=== PATIENT | female | born 1995 | race Caucasian/White ===

== ENCOUNTER 2020-12-29 23:58 | Inpatient (IN) ==
[2020-12-30] MEDS ORDERED: BUTORPHANOL 2 MG/ML VIAL IV PRN (01:04)
[2020-12-30] MEDS ORDERED: ONDANSETRON 4 MG/2 ML VIAL IV PRN ×2 (01:04→21:19)
[2020-12-30] MEDS ORDERED: LACTATED RINGERS 1,000 ML IV ONE (01:04)
[2020-12-30] MEDS ORDERED: AMPICILLIN INJ 2,000 MG in SODIUM CHLORIDE 0.9% 100 ML IV ONE (01:20)
[2020-12-30] MEDS ORDERED: OXYTOCIN/LR 20 UNIT/1,000 ML BAG IV SCH (01:30)
[2020-12-30] MEDS ORDERED: LACTATED RINGERS 1,000 ML IV SCH (01:30)
[2020-12-30 01:43] LABS: Basophils # 0.1 10*3/uL (0.0-0.2); Basophils % 0.5 % (0.0-0.8); Eosinophils # 0.2 10*3/uL (0.0-0.87); Eosinophils % 1.5 % (0.00-10.9); Hematocrit 39.4 VOL% (35.7-47.0); Hemoglobin 12.8 GM/DL (12.0-16.0); Immature Granulocytes % 0.3 %; Immature Granulocytes Absolute 0.03 #; Lymphocytes # 3.2 10*3/uL (1.4-4.0); Lymphocytes % 28.6 % (21.3-54.2); Mean Corpuscular HGB Conc 32.5 GM/DL (32-36); Mean Corpuscular Volume 86.8 FL (87-102); Mean Platelet Volume 12.2 FL (9.6-12.0); Monocytes % 9.3 % (1.7-12.7); Neutrophils % 59.8 % (38.7-73.9); Platelet Count 236 T/CUMM (130-400); Red Blood Count 4.54 MC/CUMM (3.8-5.5); Red Cell Distribution Width 13.8 % (9.3-17.3); White Blood Count 11.1 T/CUMM (4-12)
[2020-12-30 02:02] LABS: Alanine Aminotransferase 13 U/L (13-56); Albumin 2.7 G/DL (3.4-5.0); Alkaline Phosphatase 316 U/L (45-117); Aspartate Amino Transferase 19 U/L (0-37); Bilirubin,Total < 0.39 MG/DL (0.20-1.00); Blood Urea Nitrogen 9 MG/DL (7-18); Calcium 9.7 MG/DL (8.5-10.1); Carbon Dioxide 21 MMOL/L (21-32); Estimated Glom Filtration Rate 167 ML/MIN; Glucose 87 MG/DL (74-106); Osmolality,Calculated 267.1 MOS/KG (273-304); Potassium 3.9 MMOL/L (3.5-5.1); Sodium 135 MMOL/L (136-145); Total Protein 6.9 G/DL (6.4-8.2)
[2020-12-30 03:02] LABS: Hypochromasia 1+; Platelet Estimate Normal
[2020-12-30] MEDS ORDERED: SODIUM CHLORIDE 0.9% 100 ML IV ONE (05:43)
[2020-12-30] MEDS: AMPICILLIN INJ 1,000 MG in SODIUM CHLORIDE 0.9% 100 ML IV SCH ×2 (05:46→10:26)
[2020-12-30] MEDS ORDERED: AMPICILLIN INJ 1,000 MG in SODIUM CHLORIDE 0.9% 100 ML IV ONE (08:30)
[2020-12-30] MEDS ORDERED: CITRIC ACID/SODIUM CITRATE 30 ML UDCUP PO ONE (09:34)
[2020-12-30] MEDS ORDERED: NALOXONE 0.4 MG/ML VIAL IV PRN (09:34)
[2020-12-30] MEDS ORDERED: ePHEDrine 50 MG/ML VIAL IV PRN (09:34)
[2020-12-30] MEDS ORDERED: PROMETHAZINE 25 MG/1 ML VIAL IM PRN (09:34)
[2020-12-30] MEDS ORDERED: FAMOTIDINE 20 MG/2 ML VIAL IV ONE (09:34)
[2020-12-30] MEDS ORDERED: diphenhydrAMINE 50 MG/1 ML VIAL IV PRN (09:34)
[2020-12-30] MEDS ORDERED: fentaNYL 2 MCG/ROPIV 0.2% EPID 100 ML EPIDURAL SCH (10:00)
[2020-12-30 13:42] LABS: Bilirubin,Urine Negative (Negative); Blood, Urine Negative (Negative); Glucose,Urine (UA) Negative (Negative); Ketones,Urine 20 mg/dL (Negative); Mucus,Urine Many /LPF (Occasional); Nitrite,Urine Negative (Negative); Protein,Urine 30 MG/DL; Squamous Epithelial Cell,Urine Occasional /HPF (0-10); Urine Appearance CLEAR (Clear); Urine Color Yellow (Yellow); Urine Urobilinogen < 2.0 EU/DL (0.2-1.0)
[2020-12-30] MEDS ORDERED: miSOPROStoL 200 MCG TABLET ONE (19:09)
[2020-12-30] MEDS ORDERED: TRANEXAMIC ACID 1,000 MG/10 ML VIAL ONE (19:09)
[2020-12-30] MEDS ORDERED: CARBOPROST TROMETHAMINE 250 MCG/ML AMP IM ONE (19:10)
[2020-12-30] MEDS ORDERED: METHYLERGONOVINE 0.2 MG/1 ML AMP ONE (19:10)
[2020-12-30] MEDS ORDERED: OXYTOCIN/LR 20 UNIT/1,000 ML BAG IV ONE ×2 (19:10→21:19)
[2020-12-30] MEDS ORDERED: ceFAZolin 2,000 MG/50 ML DUPLEX IV ONE (19:25)
[2020-12-30] MEDS ORDERED: ceFAZolin 3,000 MG in SYRINGE 1 EACH IV ONE (19:40)
[2020-12-30] MEDS ORDERED: LIDOCAINE MPF 2% /EPI 20 ML VIAL ONE (19:50)
[2020-12-30] MEDS ORDERED: ONDANSETRON 4 MG/2 ML VIAL ONE (20:14)
[2020-12-30 20:56] LABS: Cord Venous Blood HCO3 22.3 MMOL/L; Cord Venous Blood PCO2 43.7 MMHG; Cord Venous Blood PO2 30.8
[2020-12-30] MEDS ORDERED: KETOROLAC 30 MG/1 ML VIAL ONE ×2 (21:18)
[2020-12-30] MEDS ORDERED: oxyCODONE/ACETAMINOPHEN 5-325 MG TABLET PO PRN ×2 (21:19)
[2020-12-30] MEDS ORDERED: MAGNESIUM HYDROXIDE SUSP 30 ML UDCUP PO PRN (21:19)
[2020-12-30] MEDS ORDERED: ACETAMINOPHEN 325 MG TABLET PO PRN (21:19)
[2020-12-30] MEDS ORDERED: RHO(D) IMMUNE GLOBULIN 300 MCG SYRINGE IM ONE (21:19)
[2020-12-30] MEDS ORDERED: SIMETHICONE CHEW 80 MG TABLET PO PRN (21:19)
[2020-12-30] MEDS ORDERED: hydrOXYzine HCL 25 MG/1 ML VIAL IM PRN (21:27)
[2020-12-30] MEDS ORDERED: HYDROmorphone 2 MG/1 ML VIAL IV PRN (21:27)
[2020-12-30] MEDS ORDERED: FUROSEMIDE 40 MG/4 ML VIAL ONE (21:27)
[2020-12-30] MEDS ORDERED: LACTATED RINGERS 500 ML IV ONE (21:33)
[2020-12-30] MEDS ORDERED: FUROSEMIDE 40 MG/4 ML VIAL IV ONE (22:00)
[2020-12-30] MEDS: ACETAMINOPHEN 500 MG TABLET PO SCH (23:38)
[2020-12-31] MEDS: ACETAMINOPHEN 500 MG TABLET PO SCH ×3 (04:48→17:30)
[2020-12-31 04:56] LABS: Basophils # 0.1 10*3/uL (0.0-0.2); Basophils % 0.6 % (0.0-0.8); Eosinophils % 0.1 % (0.00-10.9); Hematocrit 32.1 VOL% (35.7-47.0); Immature Granulocytes % 0.4 %; Immature Granulocytes Absolute 0.06 #; Lymphocytes # 2.4 10*3/uL (1.4-4.0); Lymphocytes % 16.4 % (21.3-54.2); Mean Corpuscular Volume 87.2 FL (87-102); Mean Platelet Volume 12.6 FL (9.6-12.0); Monocytes % 10.4 % (1.7-12.7); Neutrophils % 72.1 % (38.7-73.9); Red Blood Count 3.68 MC/CUMM (3.8-5.5); Red Cell Distribution Width 13.7 % (9.3-17.3); White Blood Count 14.4 T/CUMM (4-12)
[2020-12-31 04:57] LABS: Hemoglobin 10.6 GM/DL (12.0-16.0); Platelet Count 187 T/CUMM (130-400)
[2020-12-31] MEDS: LACTATED RINGERS 1,000 ML IV SCH ×2 (06:18→13:41)
[2020-12-31] MEDS: MULTIVITAMIN (PRENATAL) TABLET PO SCH (11:41)
[2020-12-31] MEDS: FERROUS SULFATE 325 MG TABLET PO SCH (11:41)
[2020-12-31] MEDS: DOCUSATE SODIUM 100 MG CAPSULE PO SCH (11:41)
[2020-12-31] MEDS: IBUPROFEN 800 MG TABLET PO PRN (21:49)
[2021-01-01] MEDS ORDERED: KETOROLAC 30 MG/1 ML VIAL IV SCH (03:00)
[2021-01-01] MEDS: DOCUSATE SODIUM 100 MG CAPSULE PO SCH ×2 (05:51→08:45)
[2021-01-01 08:23] VITALS: BP 124/74
[2021-01-01] MEDS: MULTIVITAMIN (PRENATAL) TABLET PO SCH (08:45)
[2021-01-01] MEDS: FERROUS SULFATE 325 MG TABLET PO SCH (08:45)
[2021-01-01] MEDS: IBUPROFEN 800 MG TABLET PO PRN (08:46)
== END 2021-01-01 14:30 | disposition home or self-care (01) | DRG 788 ==
LOC: N.LD 23:58 → N.OB 12-31 08:48
PROVIDERS: ADMIT Obstetrics & Gynecology; ATTEND Obstetrics & Gynecology
PROC: LDCSECT (ICD-10-PCS; 2020-12-30 20:01)